=== PATIENT | male | born 1985 | race Caucasian/White ===

== ENCOUNTER 2017-03-03 19:46 | Emergency (ER) | payer SELFPAY ==
[2017-03-03 21:13] VITALS: BMI 27.8
--- NOTE | 2017-03-03 22:40 | DR.GENAD ---
HPI - PCP Primary Care Physician: NFD - HPI Comment HPI Comment: PATIENT HAVE HAD SEVERAL BM TODAY AND IS UNABLE TO HOLD DOWN FLUID. ABDOMINAL CRAPING, NO FEVER. WORSE TONIGHT. SLIGHT CONGESTION PRESENT. - Complaint/Symptoms Chief Complaint Doctors Comments: N/V/D TIMES ONE DAY THAT IS GETTING WORSE. Chief Complaint:: VOMITTING,DAIARREHA,FEVER,CHILLS SINCE YESTERDAY. PATIENT GOT WORSE TODAY. HURTING ALL OVER. SOME DIFFICULTY BREATHING. Self Treatment fo Chief Complaint: 2 IMMODIUM TODAY AT 7PM,TYLENOL YESTERDAY - Nurses notes reviewed Nurses Notes Review: Yes - Source History Provided: Patient - Mode of Arrival Mode of Arrival: Ambulatory - Timing Onset of Chief Complaint: 03/02/17 Came on: Suddenly - Duration Duration: Constant Duration: Days - Severity Severity: Moderate PMH - PMH Past Medical History: Yes Past Medical History: GERD Past Surgical History: Yes Past Surgical History Comment: HERNIA REPAIR - Family History History of Family Medical Conditions: Yes Family Medical History: Hypertension - Social History Does patient currently use any type of tobacco product: Yes Have you used tobacco products in the last 12 months: Yes Type of Tobacco Use: Cigarettes How many years tobacco product used: 12 Does any household member use tobacco: Yes Alcohol Use: None Do you use any recreational Drugs:: Yes (MARIJUANA) Lives With: Spouse Lives Where: Home - infectious screening In the last 2 months have you had wt loss of >10#?: NO Have you had fever, night sweats or hemotysis?: No Have you traveled outside the country in the last 6 months?: No Isolation: Standard ROS - Review of Systems Constitutional: No Symptoms Reported, Weakness, Fatigue, Loss of Appetite. negative: Chills, Fever Eyes: negative: Eye Pain ENTM: Nose Congestion Respiratoy: Productive Cough Cardiovascular: No Symptoms Reported Gastrointestinal/Abdominal: Abdominal Pain, Diarrhea, Nausea, Vomiting Genitourinary: No Symptoms Reported Neurological: No Symptoms Reported Musculoskeletal: No Symptoms Reported Integumentary: No Symptoms Reported Hematologic/Lymphatic: No Symptoms Reported Endocrine: No Symptoms Reported All Other Systems: Reviewed and Negative PE - Vital Signs Vitals: Temperature 99.4 F Pulse Rate [Right Brachial] 85 Pulse Rate 102 Respiratory Rate 20 Blood Pressure [Right Arm] 115/56 Blood Pressure 116/70 O2 Sat by Pulse Oximetry 97 - General Limitations: No Limitations - Head Head Exam: Normal Inspection - Eyes Eye exam: Normal Appearance - ENT ENT Exam: Normal External Ear Exam External Ear Exam: Normal External Inspection TM/Canal Exam: Bilateral Normal Nose Exam: Normal Nose Exam Mouth Exam: Normal Inspection Throat Exam: Normal Inspection - Neck Neck Exam: Normal Inspection - Chest Chest Inspection: Symmetric Chest Wall Rise - Respiratory Respiratory Exam: Normal Lung Sounds Bilat Respiratory Exam: Bilateral Clear to Auscultation - Cardiovascular Cardiovascular Exam: Regular Rate, Normal Rhythm - Abdominal Exam Abdominal Exam: Normal Bowel Sounds, Distention Abdominal Tenderness: Diffuse, Moderate - Extremities Extremities Exam: Normal Inspection - Back Back Exam: Normal Inspection - Neurologic Neurological Exam: Alert, Oriented X3 - Psychiatric Psychiatric Exam: Normal Affect, Normal Mood - Skin Skin Exam: Normal Color [facility] - Additional Information Additional Information Obtained From: Family - Differential Diagnosis Differential Diagnosis: ABDOMINAL PAIN, GASTROENTERITIS, INFECTIVE DIARRHEA, DEHYDRATION Course - Treatment Treatment: SEE ORDERS. IV FLUID IN ED WITH MEDS - Reevaluation 1st: Improved - Education/Counseling Education/Counseling: Patient, Family, Education Educated On: Diagnosis, Needs for Follow Up ROR - Labs Reviewed Laboratory Results Reviewed?: Yes Result Diagrams: 03/03/17 23:40 03/03/17 23:40 Laboratory: WBC 13.2 X10^3/uL (3.6-10.0) H 03/03/17 23:40 RBC 5.15 X10^6/uL (4.7-6.0) 03/03/17 23:40 Hgb 15.5 g/dL (13.5-18.0) 03/03/17 23:40 Hct 44.3 % (42.0-54.0) 03/03/17 23:40 MCV 86.0 fL (80.0-100.0) 03/03/17 23:40 MCH 30.1 pg (27.0-34.0) 03/03/17 23:40 MCHC 35.0 g/dL (33.0-35.0) 03/03/17 23:40 RDW 13.0 % (11.6-16.5) 03/03/17 23:40 Plt Count 249 X10^3/uL (150.0-450.0) 03/03/17 23:40 MPV 8.4 fL (7.4-11.0) 03/03/17 23:40 Neut % 88.0 % (42.0-75.0) H 03/03/17 23:40 Lymph % 5.7 % (21.0-51.0) L 03/03/17 23:40 [place] % 5.8 % (0.0-13.0) 03/03/17 23:40 Eos % 0.1 % (0.9-2.9) L 03/03/17 23:40 Baso % 0.4 % (0.2-1.0) 03/03/17 23:40 Neut # 11.6 x10^3/uL (2.2-4.8) H 03/03/17 23:40 Lymph # 0.8 X10^3/uL (1.3-2.9) L 03/03/17 23:40 [place] # 0.8 x10^3/uL (0.3-0.8) 03/03/17 23:40 Eos # 0.0 x10^3/uL (0.0-0.2) 03/03/17 23:40 Baso # 0.1 X10^3/uL (0.0-0.1) 03/03/17 23:40 Absolute Nucleated RBC 0.0 /100WBC 03/03/17 23:40 Sodium 135 mmol/L (136-145) L 03/03/17 23:40 Corrected Sodium 135 mmol/L (136-145) L 03/03/17 23:40 Potassium 3.6 mmol/L (3.5-5.1) 03/03/17 23:40 Chloride 98 mmol/L (98-107) 03/03/17 23:40 Carbon Dioxide 25.8 mmol/L (21-32) 03/03/17 23:40 BUN 14 mg/dL (7-18) 03/03/17 23:40 Creatinine 1.00 mg/dL (0.70-1.30) 03/03/17 23:40 Est GFR (MDRD) Af Amer > 60 (>60) 03/03/17 23:40 Est GFR (MDRD) Non-Af > 60 (>60) 03/03/17 23:40 Glucose 112 mg/dL (65-99) H 03/03/17 23:40 Calcium 8.4 mg/dL (8.5-10.1) L 03/03/17 23:40 Corrected Calcium TNP 03/03/17 23:40 Total Bilirubin 0.50 mg/dL (0.2-1.0) 03/03/17 23:40 AST 16 Units/L (15-37) 03/03/17 23:40 ALT 22 Units/L (12-78) 03/03/17 23:40 Alkaline Phosphatase 56 Units/L (46-116) 03/03/17 23:40 Total Protein 7.2 g/dL (6.4-8.2) 03/03/17 23:40 Albumin 3.8 g/dL (3.4-5.0) 03/03/17 23:40 Globulin 3.4 g/dL (2.5-4.5) 03/03/17 23:40 Albumin/Globulin Ratio 1.1 Ratio (1.1-2.1) 03/03/17 23:40 Amylase 47 Units/L (25-115) 03/03/17 23:40 Lipase 100 Units/L (73-393) 03/03/17 23:43 Specimen Type Clean catch urine 03/04/17 01:18 Urine Color Yellow (YELLOW) 03/04/17 01:18 Urine Appearance Clear (CLEAR) 03/04/17 01:18 Urine pH 7.0 (5.0 - 8.0) 03/04/17 01:18 Ur Specific [place] 1.005 (1.000-1.030) 03/04/17 01:18 Urine Protein Negative (NEGATIVE) 03/04/17 01:18 Urine Glucose (UA) Negative (NEGATIVE) 03/04/17 01:18 Urine Ketones Negative (NEGATIVE) 03/04/17 01:18 Urine Occult Blood Negative (NEGATIVE) 03/04/17 01:18 Urine Nitrite Negative (NEGATIVE) 03/04/17 01:18 Urine Bilirubin Negative (NEGATIVE) 03/04/17 01:18 Urine Urobilinogen Normal (NORMAL) 03/04/17 01:18 Ur Leukocyte Esterase Negative (NEGATIVE) 03/04/17 01:18 Urine RBC 0-3 /HPF (NEGATIVE) 03/04/17 01:18 Urine WBC 0-3 /HPF (NEGATIVE) 03/04/17 01:18 Ur Squamous Epith Cells Rare /HPF (NEGATIVE) 03/04/17 01:18 Urine Bacteria Negative /HPF (NEGATIVE) 03/04/17 01:18 Ur Culture Indicated? No/not indicated 03/04/17 01:18 Urine Opiates Screen Negative (NEG=<300) 03/04/17 01:18 Urine Methadone Screen Negative (NEG=<300) 03/04/17 01:18 Ur Barbiturates Screen Negative (NEG=<200) 03/04/17 01:18 Ur Phencyclidine Scrn Negative (NEG=<25) 03/04/17 01:18 Ur Amphetamines Screen Negative (NEG=<1000) 03/04/17 01:18 U Benzodiazepines Scrn Negative (NEG=<200) 03/04/17 01:18 Urine Cocaine Screen Negative (NEG=<300) 03/04/17 01:18 U Marijuana (THC) Screen Positive (NEG=<50) A 03/04/17 01:18 Influenza Type A (PCR) Negative (NEGATIVE) 03/03/17 22:04 Influenza Type B (PCR) Negative (NEGATIVE) 03/03/17 22:04 Streptococcus Screen Negative (NEGATIVE) 03/03/17 22:04 - XRAY XRAY Interpreted by: Radiologist XRAY Findings: REPORT DISCUSS WITH PATIENT. - Diagnosis Discharge Problem: Gastroenteritis, Dehydration Abdominal pain Qualifiers: Abdominal location: generalized Qualified Code(s): R10.84 - Generalized abdominal pain - Discharge Plan Disposition: 01 HOME, SELF-CARE Condition: Stable Prescriptions: Dicyclomine HCl [Bentyl Cap 10 mg] 10 mg PO TID PRN #15 cap PRN Reason: Diphenoxylate/Atropine [Lomotil] 1 tab PO TID PRN #15 tab PRN Reason: Ondansetron [Zofran ODT 8 mg] 8 mg PO Q8H PRN #12 tab PRN Reason: Nausea/Vomiting - Follow ups/Referrals Follow ups/Referrals: NFD,None [Primary Care Provider] - 2 days ROSLYN LOU [STAFF PHYSICIAN] - 2 days - Instructions Instructions: Viral Gastroenteritis, Adult, [id number], Abdominal Pain, Adult , [id number] Additional Instructions: RETURN TO ED IF WORSE.
[2017-03-03] MEDS ORDERED: TORADOL 30 MG VIAL IVP ONE (23:07)
[2017-03-03] MEDS ORDERED: ZOFRAN INJ 4 MG VIAL IVP ONE (23:07)
[2017-03-03] MEDS ORDERED: NS 1000 ML 1,000 ML IV ONE (23:07)
[2017-03-03] MEDS ORDERED: PEPCID 20 MG IV PREMIX* 20 MG/50 ML BAG IV ONE (23:07)
[2017-03-03] MEDS ORDERED: NS 1000 ML 1,000 ML ONE (23:17)
[2017-03-03] MEDS ORDERED: TORADOL 30 MG VIAL ONE (23:17)
[2017-03-03] MEDS ORDERED: ZOFRAN INJ 4 MG VIAL ONE (23:17)
--- NOTE | 2017-03-03 23:25 | RAD ---
Acute abdominal series Indication:Abdominal pain Comparison: none available Findings: Please note examination is mislabeled as the left marker is on the right side. The trachea is midline. The cardiac silhouette is unremarkable. The lungs are clear without focal i nfiltrate or effusion. The bony thorax is unremarkable. Healed fracture deformity of the mid left c lavicle. Flat and upright evaluation of the abdomen demonstrates a normal bowel gas pattern. No pathological soft tissue mass or calcification can be observed. The bony structures are grossly intact. IMPRESSION: 1. No acute cardiopulmonary disease. 2. No evidence for acute abdominal pathology identified. Open Reported By:
[2017-03-03 23:56] LABS: BASOPHILS # (AUTO) 0.1 X10^3/uL (0.0-0.1); BASOPHILS % (AUTO) 0.4 % (0.2-1.0); EOSINOPHILS % (AUTO) 0.1 % (0.9-2.9); HEMATOCRIT 44.3 % (42.0-54.0); HEMOGLOBIN 15.5 g/dL (13.5-18.0); LYMPHOCYTES # (AUTO) 0.8 X10^3/uL (1.3-2.9); LYMPHOCYTES % (AUTO) 5.7 % (21.0-51.0); MEAN CORPUSCULAR HEMOGLOBIN 30.1 pg (27.0-34.0); MEAN PLATELET VOLUME 8.4 fL (7.4-11.0); MONOCYTES # (AUTO) 0.8 x10^3/uL (0.3-0.8); MONOCYTES % (AUTO) 5.8 % (0.0-13.0); NEUTROPHILS # (AUTO) 11.6 x10^3/uL (2.2-4.8); PLATELET COUNT 249 X10^3/uL (150.0-450.0); RED BLOOD COUNT 5.15 X10^6/uL (4.7-6.0); WHITE BLOOD COUNT 13.2 X10^3/uL (3.6-10.0)
[2017-03-04 00:10] LABS: ALANINE AMINOTRANSFERASE 22 Units/L (12-78); ALBUMIN 3.8 g/dL (3.4-5.0); ALKALINE PHOSPHATASE 56 Units/L (46-116); AMYLASE 47 Units/L (25-115); ASPARTATE AMINO TRANSFERASE 16 Units/L (15-37); BLOOD UREA NITROGEN 14 mg/dL (7-18); CALCIUM 8.4 mg/dL (8.5-10.1); CARBON DIOXIDE 25.8 mmol/L (21-32); CHLORIDE 98 mmol/L (98-107); COR NA(FOR HYPERGLY) 135 mmol/L (136-145); SODIUM 135 mmol/L (136-145); TOTAL PROTEIN 7.2 g/dL (6.4-8.2); eGFR BLACK RACES > 60 (>60); eGFR NON BLACK RACES > 60 (>60)
[2017-03-04 01:28] LABS: BILIRUBIN,URINE NEGATIVE (NEGATIVE); BLOOD/HEMOGLOBIN,URINE NEGATIVE (NEGATIVE); GLUCOSE, URINE NEGATIVE (NEGATIVE); KETONES,URINE NEGATIVE (NEGATIVE); LEUKOCYTE ESTERASE ,URINE NEGATIVE (NEGATIVE); NITRITES,URINE NEGATIVE (NEGATIVE); PROTEIN,URINE NEGATIVE (NEGATIVE); UROBILINOGEN,URINE NORMAL (NORMAL)
[2017-03-04 01:36] LABS: APPEARANCE,URINE CLEAR (CLEAR); BACTERIA,URINE NEGATIVE /HPF (NEGATIVE); COLOR,URINE YELLOW (YELLOW); RBC,URINE 0-3 /HPF (NEGATIVE); SQUAMOUS EPITHELIAL CELL,UR RARE /HPF (NEGATIVE)
[2017-03-04 02:20] VITALS: BP 115/56
== END 2017-03-04 02:21 | disposition home or self-care (01) ==
LOC: ER 21:19
DX: K52.89 Other specified noninfective gastroenteritis and colitis (principal); E86.0 Dehydration; R10.84 Generalized abdominal pain
CPT/HCPCS: 36415; 74022; 80053; 80307; 81001; 82150; 83690; 85025; 87070; 87502; 87880; 96365; 96367; 96374; 96375; 99283; 99285; A4222; S0028; G0434; J1885; J2405